=== PATIENT | male | born 1945 | race African-American/Black ===

== ENCOUNTER 2023-07-28 20:09 | Inpatient (IN) | payer OTHER, MEDICAID ==
[~2023-07-28] VITALS: Ht 180.3 cm; Wt 67.6 kg
[2023-07-28 20:10] VITALS: BP_SYST 134; PULSE 90; RESP 18; TEMP 98; O2SAT 98
[2023-07-28 22:01] LABS: BASOPHILS # (AUTO) 0.1 K/uL (0.0-0.2); BASOPHILS % (AUTO) 1.7 % (0.0-2.0); EOSINOPHILS # (AUTO) 0.1 K/uL (0.0-0.4); EOSINOPHILS % (AUTO) 1.5 % (0.0-4.0); HEMATOCRIT 27.9 % (36-54); HEMOGLOBIN 9.2 g/dL (14.0-18.0); LYMPHOCYTES # (AUTO) 1.4 K/uL (1.0-5.5); LYMPHOCYTES % (AUTO) 21.3 % (20.5-51.5); MEAN CORPUSCULAR HEMOGLOBIN 29 pg (27-31); MEAN CORPUSCULAR HGB CONC 33 % (32-36); MEAN CORPUSCULAR VOLUME 89 fL (79.0-98.0); MONOCYTES # (AUTO) 0.5 K/uL (0.0-1.0); MONOCYTES % (AUTO) 7.2 % (1.7-9.3); NEUTROPHILS # (AUTO) 4.4 K/uL (1.8-7.7); NEUTROPHILS % (AUTO) 68.3 % (40.0-70.0); PLATELET COUNT (AUTO) 373 K/uL (130-430); RED BLOOD CELL COUNT(AUTO) 3.14 MIL/uL (4.2-6.2); RED CELL DISTRIBUTION WIDTH 14.5 % (9.0-15.0); WHITE BLOOD COUNT (AUTO) 6.4 K/uL (4.8-10.8)
[2023-07-28 22:45] LABS: ANION GAP 6 (5-15); CALCIUM 9.6 mg/dL (8.4-11.0); CARBON DIOXIDE 25 mmol/L (23-29); CHLORIDE 102 mmol/L (98-107); GLUCOSE 193 mg/dL (74-106); POTASSIUM 4.3 mmol/L (3.5-5.1); SODIUM SERUM 133 mmol/L (136-145); UREA NITROGEN, BLOOD 41 mg/dL (8-21)
[2023-07-28 23:52] LABS: BILIRUBIN,URINE NEGATIVE (NEGATIVE); BLOOD, URINE NEGATIVE (NEGATIVE); COLOR,URINE YELLOW (YELLOW); GLUCOSE,URINE NEGATIVE (NEGATIVE); KETONES,URINE NEGATIVE (NEGATIVE); LEUKOCYTE ESTERASE ,URINE 1+ (NEGATIVE); NITRITE, URINE NEGATIVE (NEGATIVE); PROTEIN URINE 1+ (NEGATIVE); UROBILINOGEN,URINE 0.2 (0.2-1.0)
[2023-07-29 00:09] LABS: CLARITY/URINE SLIGHTLY CLOUDY (CLEAR)
[2023-07-29 00:11] LABS: BACTERIA,URINE FEW /HPF (None Seen); RBC,URINE 0-3 /HPF (0-3); WBC,URINE 20-50 /HPF (0-3)
[2023-07-29] MEDS ORDERED: cefTRIAXone 1 GM IVPB PREMIX 50 ML IV ONE (01:15)
[2023-07-29] MEDS ORDERED: D5W 1,000 ML IV PRN (02:30)
[2023-07-29] MEDS ORDERED: DEXTROSE 50% JECT 50 ML DISP.SYRIN IVP PRN (02:30)
[2023-07-29] MEDS ORDERED: ONDANSETRON HCL 4 MG/2 ML VIAL IVP PRN (02:30)
[2023-07-29] MEDS ORDERED: GLUCOSE (DEXTROSE) ORAL GEL -Adults PO PRN (02:30)
[2023-07-29] MEDS ORDERED: ACETAMINOPHEN 500 MG TABLET PO PRN (02:30)
[2023-07-29] MEDS ORDERED: LIP10 PO (10:08)
[2023-07-29] MEDS ORDERED: ASPI-1393 PO (10:08)
[2023-07-29] MEDS ORDERED: INSU100V11 SQ (10:13)
[2023-07-29] MEDS ORDERED: METO25TA6 PO (10:13)
[2023-07-29] MEDS ORDERED: NIFE-129 PO (10:13)
[2023-07-29] MEDS ORDERED: INSU100V46 (10:13)
[2023-07-29] MEDS ORDERED: MULT-1193 PO (10:13)
[2023-07-29] MEDS ORDERED: LEVE1000 PO (10:13)
[2023-07-29] MEDS ORDERED: TAMS-11 PO (10:14)
[2023-07-29] MEDS ORDERED: ASCO500T20 PO (10:15)
[2023-07-29] MEDS ORDERED: ZINC220T4 PO (10:15)
[2023-07-29 10:18] LABS: BASOPHILS # (AUTO) 0.1 K/uL (0.0-0.2); BASOPHILS % (AUTO) 1.1 % (0.0-2.0); EOSINOPHILS # (AUTO) 0.1 K/uL (0.0-0.4); EOSINOPHILS % (AUTO) 1.4 % (0.0-4.0); HEMATOCRIT 29.7 % (36-54); HEMOGLOBIN 9.8 g/dL (14.0-18.0); LYMPHOCYTES # (AUTO) 1.8 K/uL (1.0-5.5); LYMPHOCYTES % (AUTO) 26.4 % (20.5-51.5); MEAN CORPUSCULAR HEMOGLOBIN 30 pg (27-31); MEAN CORPUSCULAR HGB CONC 33 % (32-36); MEAN CORPUSCULAR VOLUME 90 fL (79.0-98.0); MONOCYTES # (AUTO) 0.6 K/uL (0.0-1.0); NEUTROPHILS # (AUTO) 4.3 K/uL (1.8-7.7); NEUTROPHILS % (AUTO) 62.1 % (40.0-70.0); PLATELET COUNT (AUTO) 370 K/uL (130-430); RED BLOOD CELL COUNT(AUTO) 3.32 MIL/uL (4.2-6.2); RED CELL DISTRIBUTION WIDTH 15.1 % (9.0-15.0); WHITE BLOOD COUNT (AUTO) 6.9 K/uL (4.8-10.8)
[2023-07-29 10:30] LABS: ANION GAP 7 (5-15); CARBON DIOXIDE 25 mmol/L (23-29); CHLORIDE 104 mmol/L (98-107); CREATININE 1.95 mg/dL (0.55-1.30); GLUCOSE 150 mg/dL (74-106); POTASSIUM 4.1 mmol/L (3.5-5.1); SODIUM SERUM 136 mmol/L (136-145); UREA NITROGEN, BLOOD 39 mg/dL (8-21)
[2023-07-29 10:34] LABS: ALANINE AMINOTRANSFERASE 67 U/L (12-78); ALBUMIN 2.6 g/dL (3.4-4.8); ASPARTATE AMINOTRANSFERASE 45 U/L (10-37); CHOLESTEROL 108 mg/dL (<200); HDL CHOLESTEROL 60 mg/dL (>45); TOTAL BILIRUBIN 0.2 mg/dL (0.0-1.0); TOTAL PROTEIN, SERUM 7.7 g/dL (6.4-8.3); TRIGLYCERIDES 63 mg/dL (30-150)
[2023-07-29 11:06] VITALS: BP_SYST 143; PULSE 96; RESP 16; TEMP 98; O2SAT 100
[2023-07-29] MEDS: ASPIRIN 81 MG TAB.CHEW PO SCH (11:24)
[2023-07-29 14:51] VITALS: BP_SYST 143; PULSE 96; RESP 16; TEMP 98
[2023-07-29 15:08] VITALS: O2SAT 99
[2023-07-29 16:03] VITALS: BP_SYST 140; PULSE 96; RESP 16; TEMP 98.9; O2SAT 96
[2023-07-29 20:40] VITALS: BP_SYST 141; PULSE 103; RESP 13; TEMP 99.5; O2SAT 100; O2SAT 99
[2023-07-29] MEDS: INSULIN REGULAR, HUMAN 100 UNITS/ML, 3 ML VIAL (humuLIN R) SUBCUT PRN (22:31)
[2023-07-30] MEDS: METOPROLOL TARTRATE 25 MG TABLET PO SCH ×3 (01:04→21:32)
[2023-07-30] MEDS: levETIRAcetam 500 MG TABLET PO SCH ×3 (01:05→21:33)
[2023-07-30 01:25] VITALS: BP_SYST 169; PULSE 114; RESP 18; TEMP 98.8; O2SAT 100
[2023-07-30 08:00] VITALS: BP_SYST 137; PULSE 87; RESP 20; TEMP 98; O2SAT 99
[2023-07-30 08:13] LABS: BASOPHILS # (AUTO) 0.1 K/uL (0.0-0.2); BASOPHILS % (AUTO) 1.3 % (0.0-2.0); EOSINOPHILS # (AUTO) 0.1 K/uL (0.0-0.4); EOSINOPHILS % (AUTO) 1.7 % (0.0-4.0); HEMATOCRIT 28.4 % (36-54); HEMOGLOBIN 9.4 g/dL (14.0-18.0); MEAN CORPUSCULAR HEMOGLOBIN 30 pg (27-31); MEAN CORPUSCULAR HGB CONC 33 % (32-36); MEAN CORPUSCULAR VOLUME 90 fL (79.0-98.0); MONOCYTES # (AUTO) 0.7 K/uL (0.0-1.0); MONOCYTES % (AUTO) 9.2 % (1.7-9.3); NEUTROPHILS # (AUTO) 4.3 K/uL (1.8-7.7); NEUTROPHILS % (AUTO) 59.8 % (40.0-70.0); PLATELET COUNT (AUTO) 362 K/uL (130-430); RED BLOOD CELL COUNT(AUTO) 3.17 MIL/uL (4.2-6.2); RED CELL DISTRIBUTION WIDTH 15.2 % (9.0-15.0); WHITE BLOOD COUNT (AUTO) 7.1 K/uL (4.8-10.8)
[2023-07-30 08:18] LABS: ANION GAP 6 (5-15); CARBON DIOXIDE 27 mmol/L (23-29); CHLORIDE 104 mmol/L (98-107); CREATININE 2.08 mg/dL (0.55-1.30); GLUCOSE 106 mg/dL (74-106); POTASSIUM 4.8 mmol/L (3.5-5.1); SODIUM SERUM 137 mmol/L (136-145); UREA NITROGEN, BLOOD 48 mg/dL (8-21)
[2023-07-30] MEDS: ASCORBIC ACID 500 MG TABLET PO SCH ×2 (08:32→21:32)
[2023-07-30] MEDS: ASPIRIN 81 MG TAB.CHEW PO SCH (08:32)
[2023-07-30] MEDS: ASPIRIN 81 MG TABLET(ECOTRIN) PO SCH (08:32)
[2023-07-30] MEDS: NIFEdipine 30 MG TAB.ER.24 PO SCH (08:33)
[2023-07-30 14:41] VITALS: BP_SYST 108; PULSE 71; RESP 14; TEMP 97.9; O2SAT 99
[2023-07-30 16:05] VITALS: BP_SYST 86; PULSE 73; RESP 14; TEMP 97.9; O2SAT 95
[2023-07-30] MEDS: 0.45% NACL 1,000 ML IV SCH (17:22)
[2023-07-30 20:35] VITALS: BP_SYST 131; PULSE 84; RESP 16; TEMP 98.4; O2SAT 100
[2023-07-30] MEDS: ATORVASTATIN 10 MG TABLET PO SCH (21:32)
[2023-07-30] MEDS: TAMSULOSIN HCL 0.4 MG CAP PO SCH (21:40)
[2023-07-30] MEDS: INSULIN REGULAR, HUMAN 100 UNITS/ML, 3 ML VIAL (humuLIN R) SUBCUT PRN (21:42)
[2023-07-31 00:17] VITALS: BP_SYST 129; PULSE 72; RESP 15; TEMP 97.6; O2SAT 98
[2023-07-31 06:59] LABS: BASOPHILS # (AUTO) 0.1 K/uL (0.0-0.2); BASOPHILS % (AUTO) 1.2 % (0.0-2.0); EOSINOPHILS # (AUTO) 0.2 K/uL (0.0-0.4); EOSINOPHILS % (AUTO) 2.5 % (0.0-4.0); HEMATOCRIT 27.6 % (36-54); HEMOGLOBIN 9.1 g/dL (14.0-18.0); LYMPHOCYTES # (AUTO) 2.5 K/uL (1.0-5.5); LYMPHOCYTES % (AUTO) 38.3 % (20.5-51.5); MEAN CORPUSCULAR HEMOGLOBIN 29 pg (27-31); MEAN CORPUSCULAR HGB CONC 33 % (32-36); MEAN CORPUSCULAR VOLUME 89 fL (79.0-98.0); MONOCYTES # (AUTO) 0.6 K/uL (0.0-1.0); MONOCYTES % (AUTO) 9.7 % (1.7-9.3); NEUTROPHILS # (AUTO) 3.1 K/uL (1.8-7.7); NEUTROPHILS % (AUTO) 48.3 % (40.0-70.0); PLATELET COUNT (AUTO) 344 K/uL (130-430); RED BLOOD CELL COUNT(AUTO) 3.08 MIL/uL (4.2-6.2); WHITE BLOOD COUNT (AUTO) 6.5 K/uL (4.8-10.8)
[2023-07-31 07:28] LABS: ALANINE AMINOTRANSFERASE 63 U/L (12-78); ALBUMIN 2.5 g/dL (3.4-4.8); ANION GAP 9 (5-15); ASPARTATE AMINOTRANSFERASE 37 U/L (10-37); CALCIUM 8.2 mg/dL (8.4-11.0); CARBON DIOXIDE 26 mmol/L (23-29); CHLORIDE 101 mmol/L (98-107); CREATININE 1.97 mg/dL (0.55-1.30); GLUCOSE 122 mg/dL (74-106); PHOSPHORUS 4.2 mg/dL (2.7-4.5); POTASSIUM 4.2 mmol/L (3.5-5.1); SODIUM SERUM 136 mmol/L (136-145); TOTAL BILIRUBIN 0.2 mg/dL (0.0-1.0); TOTAL PROTEIN, SERUM 7.6 g/dL (6.4-8.3); UREA NITROGEN, BLOOD 49 mg/dL (8-21)
[2023-07-31 07:40] LABS: TOTAL IRON BIND. CAPACITY 192 ug/dL (250-450)
[2023-07-31 08:00] VITALS: O2SAT 96
[2023-07-31 08:07] VITALS: BP_SYST 116; PULSE 82; RESP 16; TEMP 98; O2SAT 97
[2023-07-31] MEDS: ASPIRIN 81 MG TABLET(ECOTRIN) PO SCH (08:24)
[2023-07-31] MEDS: ASCORBIC ACID 500 MG TABLET PO SCH ×2 (08:25→22:00)
[2023-07-31] MEDS: ASPIRIN 81 MG TAB.CHEW PO SCH (08:26)
[2023-07-31] MEDS: METOPROLOL TARTRATE 25 MG TABLET PO SCH ×2 (08:26→22:02)
[2023-07-31] MEDS: levETIRAcetam 500 MG TABLET PO SCH ×2 (08:26→22:01)
[2023-07-31] MEDS: NIFEdipine 30 MG TAB.ER.24 PO SCH (08:30)
[2023-07-31] MEDS: INSULIN REGULAR, HUMAN 100 UNITS/ML, 3 ML VIAL (humuLIN R) SUBCUT PRN ×2 (11:12→22:07)
[2023-07-31] MEDS: 0.45% NACL 1,000 ML IV SCH ×2 (12:00→17:09)
[2023-07-31 16:16] VITALS: BP_SYST 118; PULSE 78; RESP 16; TEMP 97.7; O2SAT 96
[2023-07-31 20:00] VITALS: BP_SYST 111; PULSE 83; RESP 16; TEMP 97.2; O2SAT 100
[2023-07-31] MEDS: ATORVASTATIN 10 MG TABLET PO SCH (22:00)
[2023-07-31] MEDS: TAMSULOSIN HCL 0.4 MG CAP PO SCH (22:00)
[2023-08-01 00:05] VITALS: BP_SYST 131; PULSE 92; RESP 16; TEMP 98.2; O2SAT 100
[2023-08-01] MEDS: 0.45% NACL 1,000 ML IV SCH ×2 (01:34→21:55)
[2023-08-01 08:02] LABS: BASOPHILS # (AUTO) 0.1 K/uL (0.0-0.2); BASOPHILS % (AUTO) 1.9 % (0.0-2.0); EOSINOPHILS # (AUTO) 0.2 K/uL (0.0-0.4); EOSINOPHILS % (AUTO) 3.3 % (0.0-4.0); HEMATOCRIT 27.8 % (36-54); LYMPHOCYTES # (AUTO) 2.5 K/uL (1.0-5.5); LYMPHOCYTES % (AUTO) 38.5 % (20.5-51.5); MEAN CORPUSCULAR HEMOGLOBIN 29 pg (27-31); MEAN CORPUSCULAR HGB CONC 32 % (32-36); MEAN CORPUSCULAR VOLUME 90 fL (79.0-98.0); MONOCYTES # (AUTO) 0.6 K/uL (0.0-1.0); NEUTROPHILS # (AUTO) 3.1 K/uL (1.8-7.7); NEUTROPHILS % (AUTO) 47.3 % (40.0-70.0); PLATELET COUNT (AUTO) 296 K/uL (130-430); RED CELL DISTRIBUTION WIDTH 14.8 % (9.0-15.0); WHITE BLOOD COUNT (AUTO) 6.6 K/uL (4.8-10.8)
[2023-08-01 08:13] LABS: ALANINE AMINOTRANSFERASE 64 U/L (12-78); ALBUMIN 2.3 g/dL (3.4-4.8); ANION GAP 9 (5-15); ASPARTATE AMINOTRANSFERASE 47 U/L (10-37); CALCIUM 8.8 mg/dL (8.4-11.0); CARBON DIOXIDE 23 mmol/L (23-29); CHLORIDE 105 mmol/L (98-107); CREATININE 1.92 mg/dL (0.55-1.30); GLUCOSE 96 mg/dL (74-106); PHOSPHORUS 3.7 mg/dL (2.7-4.5); POTASSIUM 4.1 mmol/L (3.5-5.1); SODIUM SERUM 137 mmol/L (136-145); TOTAL BILIRUBIN 0.2 mg/dL (0.0-1.0); TOTAL PROTEIN, SERUM 7.2 g/dL (6.4-8.3); UREA NITROGEN, BLOOD 48 mg/dL (8-21)
[2023-08-01 08:50] VITALS: BP_SYST 134; PULSE 78; RESP 18; TEMP 98.4; O2SAT 100
[2023-08-01] MEDS: ASPIRIN 81 MG TAB.CHEW PO SCH (10:08)
[2023-08-01] MEDS: ASCORBIC ACID 500 MG TABLET PO SCH ×2 (10:08→21:53)
[2023-08-01] MEDS: ASPIRIN 81 MG TABLET(ECOTRIN) PO SCH (10:08)
[2023-08-01] MEDS: levETIRAcetam 500 MG TABLET PO SCH ×2 (10:09→21:53)
[2023-08-01] MEDS: NIFEdipine 30 MG TAB.ER.24 PO SCH (10:09)
[2023-08-01] MEDS: METOPROLOL TARTRATE 25 MG TABLET PO SCH ×2 (10:10→21:54)
[2023-08-01] MEDS: INSULIN REGULAR, HUMAN 100 UNITS/ML, 3 ML VIAL (humuLIN R) SUBCUT PRN ×3 (11:39→22:15)
[2023-08-01 12:41] VITALS: O2SAT 96
[2023-08-01 16:02] VITALS: BP_SYST 107; PULSE 75; RESP 18; TEMP 98; O2SAT 98
[2023-08-01 20:15] VITALS: RESP 20; TEMP 97.4; O2SAT 97; O2SAT 98
[2023-08-01 20:35] VITALS: BP_SYST 153; PULSE 89; RESP 20; TEMP 97.1; O2SAT 100
[2023-08-01] MEDS: TAMSULOSIN HCL 0.4 MG CAP PO SCH (21:53)
[2023-08-01] MEDS: ATORVASTATIN 10 MG TABLET PO SCH (21:53)
[2023-08-02] MEDS: 0.45% NACL 1,000 ML IV SCH ×2 (05:47→10:24)
[2023-08-02 08:00] VITALS: BP_SYST 163; PULSE 88; RESP 20; TEMP 97.9; O2SAT 100
[2023-08-02 08:51] LABS: ANION GAP 7 (5-15); CALCIUM 8.2 mg/dL (8.4-11.0); CARBON DIOXIDE 24 mmol/L (23-29); CHLORIDE 105 mmol/L (98-107); CREATININE 1.85 mg/dL (0.55-1.30); GLUCOSE 103 mg/dL (74-106); POTASSIUM 4.8 mmol/L (3.5-5.1); SODIUM SERUM 136 mmol/L (136-145); UREA NITROGEN, BLOOD 45 mg/dL (8-21)
[2023-08-02] MEDS: ASCORBIC ACID 500 MG TABLET PO SCH (10:25)
[2023-08-02] MEDS: METOPROLOL TARTRATE 25 MG TABLET PO SCH (10:25)
[2023-08-02] MEDS: ASPIRIN 81 MG TAB.CHEW PO SCH (10:26)
[2023-08-02] MEDS: ASPIRIN 81 MG TABLET(ECOTRIN) PO SCH (10:27)
[2023-08-02] MEDS: NIFEdipine 30 MG TAB.ER.24 PO SCH (10:27)
[2023-08-02] MEDS: levETIRAcetam 500 MG TABLET PO SCH (10:27)
[2023-08-02 12:00] VITALS: BP_SYST 154; PULSE 76; RESP 18; TEMP 97.9; O2SAT 94
[2023-08-02 14:35] VITALS: BP_SYST 143; PULSE 76; RESP 18; TEMP 97.9; O2SAT 100
[2023-08-02 16:00] VITALS: BP_SYST 143; PULSE 76; RESP 18; TEMP 97.9; O2SAT 100
== END 2023-08-02 17:05 | DRG 682 ==
LOC: SED 20:09 → STU 07-29 02:19 → SMU 07-31 14:28
PROVIDERS: ADMIT Family Medicine; ATTEND Family Medicine
DX: N17.9 Acute kidney failure, unspecified (principal); E43 Unspecified severe protein-calorie malnutrition; N13.8 Other obstructive and reflux uropathy; I24.89 Other forms of acute ischemic heart disease; N13.6 Pyonephrosis; N18.4 Chronic kidney disease, stage 4 (severe); I12.9 Hypertensive chronic kidney disease with stage 1 through stage 4 chronic kidney disease, or unspecified chronic kidney disease; F03.90 Unspecified dementia, unspecified severity, without behavioral disturbance, psychotic disturbance, mood disturbance, and anxiety; G40.909 Epilepsy, unspecified, not intractable, without status epilepticus; E78.5 Hyperlipidemia, unspecified; E11.22 Type 2 diabetes mellitus with diabetic chronic kidney disease; E87.5 Hyperkalemia; N40.1 Benign prostatic hyperplasia with lower urinary tract symptoms; D63.8 Anemia in other chronic diseases classified elsewhere; Z79.4 Long term (current) use of insulin; Z79.82 Long term (current) use of aspirin; Z79.899 Other long term (current) drug therapy; Z86.73 Personal history of transient ischemic attack (TIA), and cerebral infarction without residual deficits
CPT/HCPCS: 36415; 70450-TC; 71045; 76376; 76770; 80048; 80053; 80061; 81000; 81001; 81015; 82962; 83037; 83540; 83550; 83605; 83735; 83880; 84100; 84484; 85025; 87040; 87081; 87086; 93005; 93306; 93923; 96365; 99285; G0378; J0696; J7060